=== PATIENT | female | born 1950 | race Caucasian/White ===

== ENCOUNTER 2019-07-11 13:06 | Inpatient (IN) ==
[2019-07-11] MEDS ORDERED: HYDROmorphone 2 MG/1 ML VIAL IV STA ×2 (13:56→15:17)
[2019-07-11] MEDS ORDERED: ONDANSETRON 4 MG/2 ML VIAL IV STA (13:56)
[2019-07-11] MEDS ORDERED: HYDROmorphone 2 MG/1 ML VIAL ONE (13:57)
[2019-07-11] MEDS ORDERED: ONDANSETRON 4 MG/2 ML VIAL ONE (13:57)
[2019-07-11 15:46] LABS: Basophils % 0.7 % (0.0-0.8); Eosinophils # 0.1 10*3/uL (0.0-0.87); Eosinophils % 1.7 % (0.00-10.9); Hematocrit 38.3 VOL% (35.7-47.0); Hemoglobin 12.9 GM/DL (12.0-16.0); Immature Granulocytes % 0.5 %; Immature Granulocytes Absolute 0.03 #; Lymphocytes # 0.8 10*3/uL (1.4-4.0); Lymphocytes % 12.8 % (21.3-54.2); Mean Corpuscular HGB Conc 33.7 GM/DL (32-36); Mean Corpuscular Volume 91.4 FL (87-102); Mean Platelet Volume 11.5 FL (9.6-12.0); Monocytes % 4.6 % (1.7-12.7); Neutrophils % 79.7 % (38.7-73.9); Platelet Count 118 T/CUMM (130-400); Red Blood Count 4.19 MC/CUMM (3.8-5.5); Red Cell Distribution Width 13.2 % (9.3-17.3)
[2019-07-11] MEDS ORDERED: ACETAMINOPHEN 325 MG TABLET PO PRN (15:51)
[2019-07-11 16:06] LABS: Calcium 8.8 MG/DL (8.5-10.1); Osmolality,Calculated 281.5 MOS/KG (273-304)
[2019-07-11] MEDS ORDERED: ALBUTEROL/IPRATROPIUM 3 ML NEB RESP TX PRN (16:31)
[2019-07-11] MEDS ORDERED: hydrALAZINE 20 MG/1 ML VIAL IV PRN (16:31)
[2019-07-11] MEDS: SODIUM CHLORIDE 0.9% 1,000 ML IV SCH (17:46)
[2019-07-11] MEDS: HYDROmorphone 2 MG/1 ML VIAL IV PRN (19:09)
[2019-07-11] MEDS: ONDANSETRON 4 MG/2 ML VIAL IV PRN (19:11)
[2019-07-11] MEDS: TOLTERODINE 2 MG TABLET PO SCH (21:29)
[2019-07-11] MEDS: CYCLOBENZAPRINE 10 MG TABLET PO SCH (21:29)
[2019-07-11] MEDS: GABAPENTIN 300 MG CAPSULE PO SCH (21:30)
[2019-07-11] MEDS: DOCUSATE SODIUM 100 MG CAPSULE PO SCH (21:30)
[2019-07-12] MEDS: HYDROmorphone 2 MG/1 ML VIAL IV PRN ×3 (00:09→14:03)
[2019-07-12] MEDS: SODIUM CHLORIDE 0.9% 1,000 ML IV SCH (01:44)
[2019-07-12] MEDS: ONDANSETRON 4 MG/2 ML VIAL IV PRN (04:17)
[2019-07-12] MEDS ORDERED: ceFAZolin 1,000 MG in SYRINGE 1 EACH IV ONE (06:00)
[2019-07-12] MEDS ORDERED: VANCOMYCIN INJ 1,000 MG in SODIUM CHLORIDE 0.9% 250 ML IV ONE (06:00)
[2019-07-12 06:12] LABS: Basophils % 0.4 % (0.0-0.8); Eosinophils # 0.1 10*3/uL (0.0-0.87); Eosinophils % 0.7 % (0.00-10.9); Hematocrit 41.1 VOL% (35.7-47.0); Hemoglobin 13.2 GM/DL (12.0-16.0); Immature Granulocytes % 0.4 %; Immature Granulocytes Absolute 0.03 #; Lymphocytes # 0.8 10*3/uL (1.4-4.0); Mean Corpuscular HGB Conc 32.1 GM/DL (32-36); Mean Corpuscular Volume 94.7 FL (87-102); Mean Platelet Volume 11.4 FL (9.6-12.0); Monocytes % 5.9 % (1.7-12.7); Neutrophils % 82.6 % (38.7-73.9); Platelet Count 107 T/CUMM (130-400); Red Blood Count 4.34 MC/CUMM (3.8-5.5); Red Cell Distribution Width 13.3 % (9.3-17.3); White Blood Count 7.5 T/CUMM (4-12)
[2019-07-12] MEDS ORDERED: DEXAMETHASONE 4 MG/1 ML VIAL ONE (06:33)
[2019-07-12] MEDS ORDERED: LIDOCAINE 1% 5 ML VIAL ONE (06:33)
[2019-07-12] MEDS ORDERED: ROPIVACAINE 0.5% 30 ML VIAL ONE (06:34)
[2019-07-12 06:45] LABS: Albumin 3.2 G/DL (3.4-5.0); Bilirubin,Total 0.5 MG/DL (0.2-1.0); Calcium 8.2 MG/DL (8.5-10.1)
[2019-07-12] MEDS ORDERED: VANCOMYCIN 1,000 MG VIAL ONE ×2 (07:23→08:41)
[2019-07-12] MEDS ORDERED: MAGNESIUM HYDROXIDE SUSP 30 ML UDCUP PO PRN (07:54)
[2019-07-12] MEDS ORDERED: diphenhydrAMINE CAP 25 MG CAPSULE PO PRN (07:55)
[2019-07-12] MEDS ORDERED: ONDANSETRON 4 MG/2 ML VIAL IV PRN (07:55)
[2019-07-12] MEDS ORDERED: HYDROmorphone 2 MG/1 ML VIAL IV PRN (07:55)
[2019-07-12] MEDS ORDERED: KETOROLAC 15 MG/1 ML VIAL IV SCH (08:00)
[2019-07-12] MEDS ORDERED: SODIUM CHLORIDE 0.9% 1,000 ML IV PRN (08:36)
[2019-07-12] MEDS ORDERED: ceFAZolin 1,000 MG VIAL ONE (08:43)
[2019-07-12] MEDS ORDERED: TRIAMCINOLONE ACETONIDE 40 MG/1 ML VIAL ONE (08:51)
[2019-07-12 08:52] LABS: Basophils % 0.2 % (0.0-0.8); Eosinophils % 0.4 % (0.00-10.9); Hematocrit 35.7 VOL% (35.7-47.0); Hemoglobin 11.6 GM/DL (12.0-16.0); Immature Granulocytes % 0.6 %; Immature Granulocytes Absolute 0.03 #; Lymphocytes # 0.5 10*3/uL (1.4-4.0); Lymphocytes % 10.5 % (21.3-54.2); Mean Corpuscular HGB Conc 32.5 GM/DL (32-36); Mean Corpuscular Volume 94.9 FL (87-102); Mean Platelet Volume 11.1 FL (9.6-12.0); Monocytes % 4.4 % (1.7-12.7); Neutrophils % 83.9 % (38.7-73.9); Platelet Count 107 T/CUMM (130-400); Red Blood Count 3.76 MC/CUMM (3.8-5.5); Red Cell Distribution Width 13.5 % (9.3-17.3)
[2019-07-12] MEDS ORDERED: BACITRACIN OINT 0.9 GM PACK TOP ONE (08:56)
[2019-07-12] MEDS ORDERED: METOPROLOL SUCCINATE 200 MG PO SCH (09:00)
[2019-07-12] MEDS ORDERED: EPINEPHrine 1 MG/ML VIAL ONE (09:00)
[2019-07-12] MEDS ORDERED: PANTOPRAZOLE 40 MG TABLET PO SCH ×2 (09:00)
[2019-07-12] MEDS ORDERED: [UNRECOGNIZED DRUG - OTHER] PO SCH (09:00)
[2019-07-12] MEDS ORDERED: BENZOIN TOP ONE (09:46)
[2019-07-12 09:58] LABS: Partial Thromboplastin Time < 21.0 SECS (20.8-36.0)
[2019-07-12] MEDS ORDERED: ALBUTEROL/IPRATROPIUM 3 ML NEB RESP TX ONE (10:20)
[2019-07-12] MEDS ORDERED: BUPIVACAINE SPINAL 0.75% 2 ML AMP SPINAL ONE (11:08)
[2019-07-12] MEDS ORDERED: propofoL 200 MG/20 ML VIAL IV ONE (11:08)
[2019-07-12] MEDS ORDERED: SEVOFLURANE 1 UNIT/15 MINUTE INH ONE (11:09)
[2019-07-12] MEDS ORDERED: MIDAZOLAM 2 MG/2 ML VIAL ONE (11:09)
[2019-07-12] MEDS ORDERED: fentaNYL 100 MCG/2 ML VIAL ONE (11:09)
[2019-07-12] MEDS ORDERED: ePHEDrine 50 MG/ML AMP ONE (11:09)
[2019-07-12] MEDS ORDERED: PHENYLEPHRINE 1 MG/10 ML SYRINGE IV ONE (11:10)
[2019-07-12] MEDS ORDERED: DEXMEDETOMIDINE 200 MCG/2 ML VIAL ONE (11:10)
[2019-07-12] MEDS ORDERED: SODIUM CHLORIDE 0.9% 1,000 ML IV ONE (11:10)
[2019-07-12] MEDS ORDERED: LACTATED RINGERS 1,000 ML IV ONE (11:10)
[2019-07-12] MEDS ORDERED: ROCURONIUM 100 MG/10 ML VIAL IV ONE (11:10)
[2019-07-12] MEDS ORDERED: ETOMIDATE 40 MG/20 ML VIAL IV ONE (11:10)
[2019-07-12] MEDS ORDERED: SODIUM CHLORIDE 0.9% 100 ML IV ONE (11:10)
[2019-07-12] MEDS ORDERED: GLYCOPYRROLATE 0.4 MG/2 ML VIAL ONE (11:10)
[2019-07-12] MEDS ORDERED: SUCCINYLCHOLINE 200 MG/10 ML VIAL ONE (11:10)
[2019-07-12] MEDS ORDERED: SODIUM CHLORIDE 0.9% 250 ML IV ONE (11:10)
[2019-07-12] MEDS ORDERED: NEOSTIGMINE 10 MG/10 ML VIAL ONE (11:11)
[2019-07-12] MEDS ORDERED: ALBUTEROL INHALER 8 GM INH ONE (11:23)
[2019-07-12] MEDS ORDERED: ALBUTEROL 2.5 MG/3 ML NEB RESP TX PRN (12:20)
[2019-07-12] MEDS ORDERED: PHENOL 1.4% THROAT SPRAY 177 ML BOTTLE PO PRN (13:03)
[2019-07-12] MEDS: LACTATED RINGERS 1,000 ML IV SCH ×2 (14:02→16:53)
[2019-07-12] MEDS: ceFAZolin 1,000 MG in SYRINGE 1 EACH IV SCH ×2 (14:08→21:57)
[2019-07-12] MEDS: METOPROLOL SUCCINATE XL 25 MG TABLET PO SCH (14:15)
[2019-07-12] MEDS: TOPIRAMATE 25 MG TABLET PO SCH (14:15)
[2019-07-12] MEDS: DOCUSATE SODIUM 100 MG CAPSULE PO SCH ×2 (14:15→21:53)
[2019-07-12] MEDS: SIMVASTATIN 40 MG TABLET PO SCH (14:15)
[2019-07-12] MEDS: PANTOPRAZOLE 40 MG VIAL IV SCH ×2 (14:17→21:53)
[2019-07-12] MEDS: POTASSIUM CHLORIDE 20 MEQ TABLET PO SCH (14:20)
[2019-07-12] MEDS: ALBUTEROL/IPRATROPIUM 3 ML NEB RESP TX SCH ×2 (14:28→18:59)
[2019-07-12] MEDS: buPROPion XL 150 MG TABLET PO SCH (14:28)
[2019-07-12] MEDS: GABAPENTIN 300 MG CAPSULE PO SCH (21:53)
[2019-07-12] MEDS: TOLTERODINE 2 MG TABLET PO SCH (21:53)
[2019-07-12] MEDS: CYCLOBENZAPRINE 10 MG TABLET PO SCH (21:53)
[2019-07-13] MEDS: ALBUTEROL/IPRATROPIUM 3 ML NEB RESP TX SCH ×4 (00:25→19:09)
[2019-07-13] MEDS ORDERED: FONDAPARINUX 2.5 MG/0.5 ML SYRINGE SUBCUT SCH (01:56)
[2019-07-13] MEDS: HYDROmorphone 2 MG/1 ML VIAL IV PRN (04:15)
[2019-07-13 06:39] LABS: Basophils # 0.1 10*3/uL (0.0-0.2); Basophils % 0.8 % (0.0-0.8); Eosinophils % 0.3 % (0.00-10.9); Hematocrit 36.6 VOL% (35.7-47.0); Hemoglobin 11.8 GM/DL (12.0-16.0); Immature Granulocytes % 0.3 %; Immature Granulocytes Absolute 0.02 #; Lymphocytes # 0.8 10*3/uL (1.4-4.0); Lymphocytes % 11.6 % (21.3-54.2); Mean Corpuscular HGB Conc 32.2 GM/DL (32-36); Mean Corpuscular Volume 96.1 FL (87-102); Mean Platelet Volume 10.9 FL (9.6-12.0); Platelet Count 100 T/CUMM (130-400); Red Blood Count 3.81 MC/CUMM (3.8-5.5); Red Cell Distribution Width 13.6 % (9.3-17.3); White Blood Count 6.7 T/CUMM (4-12)
[2019-07-13 07:01] LABS: Band Neutrophils 10 % (0-10); Eosinophils 1 % (0-10); Hypochromasia 1+; Lymphocytes 15 % (20-55); Platelet Estimate Decreased; Segmented Neutrophils 70 % (50-85); Total Cells Counted 100
[2019-07-13 07:13] LABS: Osmolality,Calculated 284.4 MOS/KG (273-304)
[2019-07-13] MEDS: TOPIRAMATE 25 MG TABLET PO SCH (09:58)
[2019-07-13] MEDS: buPROPion XL 150 MG TABLET PO SCH (09:58)
[2019-07-13] MEDS: SIMVASTATIN 40 MG TABLET PO SCH (09:59)
[2019-07-13] MEDS: DOCUSATE SODIUM 100 MG CAPSULE PO SCH ×2 (09:59→20:58)
[2019-07-13] MEDS: POTASSIUM CHLORIDE 20 MEQ TABLET PO SCH (10:00)
[2019-07-13] MEDS: PANTOPRAZOLE 40 MG VIAL IV SCH ×2 (10:01→20:59)
[2019-07-13] MEDS: FONDAPARINUX 2.5 MG/0.5 ML SYRINGE SUBCUT SCH (10:05)
[2019-07-13] MEDS ORDERED: CELECOXIB 200 MG CAPSULE PO SCH (13:55)
[2019-07-13] MEDS: METOPROLOL SUCCINATE XL 25 MG TABLET PO SCH (15:03)
[2019-07-13] MEDS: MEROPENEM 500 MG in SODIUM CHLORIDE 0.9% 100 ML IV SCH ×2 (15:08→20:57)
[2019-07-13] MEDS: CYCLOBENZAPRINE 10 MG TABLET PO SCH (20:58)
[2019-07-13] MEDS: TOLTERODINE 2 MG TABLET PO SCH (20:58)
[2019-07-13] MEDS: GABAPENTIN 300 MG CAPSULE PO SCH (20:58)
[2019-07-14] MEDS: ALBUTEROL/IPRATROPIUM 3 ML NEB RESP TX SCH ×4 (01:36→19:07)
[2019-07-14] MEDS: MEROPENEM 500 MG in SODIUM CHLORIDE 0.9% 100 ML IV SCH ×3 (05:11→20:42)
[2019-07-14 05:56] LABS: Basophils % 0.4 % (0.0-0.8); Eosinophils # 0.1 10*3/uL (0.0-0.87); Eosinophils % 2.1 % (0.00-10.9); Hematocrit 34.4 VOL% (35.7-47.0); Immature Granulocytes % 0.9 %; Immature Granulocytes Absolute 0.05 #; Lymphocytes # 0.8 10*3/uL (1.4-4.0); Lymphocytes % 14.8 % (21.3-54.2); Mean Corpuscular Volume 96.6 FL (87-102); Mean Platelet Volume 11.5 FL (9.6-12.0); Monocytes % 8.8 % (1.7-12.7); Red Blood Count 3.56 MC/CUMM (3.8-5.5); Red Cell Distribution Width 13.5 % (9.3-17.3); White Blood Count 5.7 T/CUMM (4-12)
[2019-07-14 06:00] LABS: Platelet Count 79 T/CUMM (130-400)
[2019-07-14 06:34] LABS: Band Neutrophils 1 % (0-10); Eosinophils 3 % (0-10); Hypochromasia 1+; Lymphocytes 12 % (20-55); Nucleated Red Blood Cells 1 (0-5); Ovalocytes Slight; Platelet Estimate Decreased; Segmented Neutrophils 72 % (50-85); Total Cells Counted 100
[2019-07-14] MEDS: SIMVASTATIN 40 MG TABLET PO SCH (10:05)
[2019-07-14] MEDS: POTASSIUM CHLORIDE 20 MEQ TABLET PO SCH (10:05)
[2019-07-14] MEDS: METOPROLOL SUCCINATE XL 25 MG TABLET PO SCH (10:05)
[2019-07-14] MEDS: TOPIRAMATE 25 MG TABLET PO SCH (10:05)
[2019-07-14] MEDS: buPROPion XL 150 MG TABLET PO SCH (10:06)
[2019-07-14] MEDS: FONDAPARINUX 2.5 MG/0.5 ML SYRINGE SUBCUT SCH (10:06)
[2019-07-14] MEDS: DOCUSATE SODIUM 100 MG CAPSULE PO SCH ×2 (10:06→20:41)
[2019-07-14] MEDS: HYDROmorphone 2 MG/1 ML VIAL IV PRN (10:18)
[2019-07-14] MEDS: PANTOPRAZOLE 40 MG VIAL IV SCH ×2 (10:25→20:44)
[2019-07-14] MEDS ORDERED: methylPREDNISolone SOD SUC 125 MG/2 ML VIAL IV ONE (12:00)
[2019-07-14] MEDS ORDERED: KETOROLAC 15 MG/1 ML VIAL IV ONE (12:00)
[2019-07-14] MEDS ORDERED: MEROPENEM 500 MG in SODIUM CHLORIDE 0.9% 100 ML IV SCH ×3 (13:00)
[2019-07-14] MEDS: CYCLOBENZAPRINE 10 MG TABLET PO SCH (20:41)
[2019-07-14] MEDS: GABAPENTIN 300 MG CAPSULE PO SCH (20:41)
[2019-07-14] MEDS: TOLTERODINE 2 MG TABLET PO SCH (20:41)
[2019-07-15] MEDS: ALBUTEROL/IPRATROPIUM 3 ML NEB RESP TX SCH ×4 (00:29→19:40)
[2019-07-15 05:12] LABS: Basophils % 0.2 % (0.0-0.8); Eosinophils % 0.2 % (0.00-10.9); Hemoglobin 9.8 GM/DL (12.0-16.0); Immature Granulocytes Absolute 0.06 #; Lymphocytes # 0.5 10*3/uL (1.4-4.0); Lymphocytes % 7.5 % (21.3-54.2); Mean Corpuscular HGB Conc 32.7 GM/DL (32-36); Mean Corpuscular Volume 93.8 FL (87-102); Mean Platelet Volume 11.6 FL (9.6-12.0); Monocytes % 6.1 % (1.7-12.7); Platelet Count 102 T/CUMM (130-400); Red Cell Distribution Width 13.2 % (9.3-17.3); White Blood Count 6.1 T/CUMM (4-12)
[2019-07-15] MEDS: MEROPENEM 500 MG in SODIUM CHLORIDE 0.9% 100 ML IV SCH ×3 (05:23→21:31)
[2019-07-15 05:39] LABS: Band Neutrophils 1 % (0-10); Lymphocytes 8 % (20-55); Metamyelocytes 1 %; Microcytosis Slight; Segmented Neutrophils 84 % (50-85); Total Cells Counted 100
[2019-07-15 05:40] LABS: Ovalocytes Slight
[2019-07-15] MEDS: PANTOPRAZOLE 40 MG VIAL IV SCH ×2 (08:38→21:27)
[2019-07-15] MEDS: buPROPion XL 150 MG TABLET PO SCH (08:45)
[2019-07-15] MEDS: POTASSIUM CHLORIDE 20 MEQ TABLET PO SCH (08:45)
[2019-07-15] MEDS: DOCUSATE SODIUM 100 MG CAPSULE PO SCH ×2 (08:45→21:27)
[2019-07-15] MEDS: SIMVASTATIN 40 MG TABLET PO SCH (08:45)
[2019-07-15] MEDS: TOPIRAMATE 25 MG TABLET PO SCH (08:46)
[2019-07-15] MEDS: METOPROLOL SUCCINATE XL 25 MG TABLET PO SCH (08:46)
[2019-07-15] MEDS ORDERED: BISACODYL 10 MG SUPP RECTAL ONE (09:03)
[2019-07-15] MEDS: FONDAPARINUX 2.5 MG/0.5 ML SYRINGE SUBCUT SCH (09:07)
[2019-07-15] MEDS: POLYETHYLENE GLYCOL POWDER 17 GM PACK PO SCH (09:46)
[2019-07-15] MEDS: TOLTERODINE 2 MG TABLET PO SCH (21:27)
[2019-07-15] MEDS: CYCLOBENZAPRINE 10 MG TABLET PO SCH (21:27)
[2019-07-15] MEDS: GABAPENTIN 300 MG CAPSULE PO SCH (21:27)
[2019-07-16] MEDS: ALBUTEROL/IPRATROPIUM 3 ML NEB RESP TX SCH ×3 (01:05→13:27)
[2019-07-16] MEDS: MEROPENEM 500 MG in SODIUM CHLORIDE 0.9% 100 ML IV SCH ×2 (05:04→13:18)
[2019-07-16] MEDS: PANTOPRAZOLE 40 MG VIAL IV SCH (09:19)
[2019-07-16] MEDS: FONDAPARINUX 2.5 MG/0.5 ML SYRINGE SUBCUT SCH (09:19)
[2019-07-16] MEDS: POTASSIUM CHLORIDE 20 MEQ TABLET PO SCH (09:43)
[2019-07-16] MEDS: DOCUSATE SODIUM 100 MG CAPSULE PO SCH (09:43)
[2019-07-16] MEDS: POLYETHYLENE GLYCOL POWDER 17 GM PACK PO SCH (09:44)
[2019-07-16] MEDS: TOPIRAMATE 25 MG TABLET PO SCH (09:44)
[2019-07-16] MEDS: buPROPion XL 150 MG TABLET PO SCH (09:45)
[2019-07-16] MEDS: METOPROLOL SUCCINATE XL 25 MG TABLET PO SCH (09:45)
[2019-07-16] MEDS: SIMVASTATIN 40 MG TABLET PO SCH (09:46)
[2019-07-16 15:46] VITALS: BP 115/62
== END 2019-07-16 17:39 | DRG 469 ==
LOC: EDUNIT# → EDBD → N.ED 13:06 → SUPCPDRO 15:50 → N.EDINP 15:50 → N.3E 16:48
PROVIDERS: ADMIT Family Medicine; ATTEND Family Medicine